=== PATIENT | female | born 1950 | race Caucasian/White ===

== ENCOUNTER 2020-02-01 00:22 | Outpatient (CLI) | payer MEDICARE, SELFPAY ==
[2020-02-01 18:56] LABS: SARS-CoV-2 RNA PCR Negative
== END 2020-02-01 00:23 | disposition home or self-care (01) ==
LOC: ANHCOVIDDT 00:22
PROVIDERS: PCP Internal Medicine; Visit Provider Internal Medicine Gastroenterology
DX: Z01.818 Encounter for other preprocedural examination (principal); Z11.59 Encounter for screening for other viral diseases; Z12.11 Encounter for screening for malignant neoplasm of colon
CPT/HCPCS: 87635; C9803; U0003

== ENCOUNTER 2020-02-03 01:34 | Day surgery (SDC) | payer MEDICARE, SELFPAY ==
[2020-02-03 06:40] VITALS: BP 145/108; PULSE 90; RESP 18; TEMP 36.6; O2SAT 97
--- NOTE | 2020-02-03 06:59 | P.HP_ITS ---
History of Present Illness History of Present Illness Consent: Risks, benefits, and alternatives have been discussed and questions answered. Patient agrees to proceed with procedure. Chief complaint: Neoplasm Screening Narrative: Jayne Perez is a 69 year old W female referred for screening colonoscopy secondary to history of colonic polyps. Patient states she has had several colonoscopies in the past last one was 8 years ago in [place] which time a polyp was removed. There is no family history of colorectal cancer. Patient is asymptomatic. 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 Patient underwent total hysterectomy with subsequent radiation and chemotherapy 4 years ago [facility] Past Medical History Medical History (Updated 02/03/20 @ 07:01 by Jeremy Crockett MD) Diabetes mellitus History of uterine cancer Hypertension Restless legs syndrome Surgical History Surgical History (Updated 02/03/20 @ 07:02 by Jeremy Crockett MD) Status post total abdominal hysterectomy and bilateral salpingo-oophorectomy (PROSPER-BSO) Status post total left knee replacement Social History Social History Gender identity (if verbalized by the patient): Female Sexual Orientation (if Verbalized by the Patient): Straight or Heterosexual Meds Home Medications and Allergies Home Medications Medication Instructions Recorded Confirmed Type glimepiride 1 mg PO HS 01/27/20 02/03/20 History lisinopril 10 mg PO DAILY 01/27/20 01/27/20 History metformin 1,000 mg PO BID 01/27/20 01/27/20 History ropinirole [Requip] 0.25 mg PO PRN 01/27/20 01/27/20 History Allergies Allergy/AdvReac Type Severity Reaction Status Date / Time Penicillins Allergy Mild Unknown Verified 02/03/20 06:39 erythromycin base Allergy Unknown Verified 02/03/20 06:39 [From Erythrocin] Vital Signs Vital Signs - 24 hr 02/03/20 06:40 Temperature 36.6 C Pulse Rate 90 Respiratory Rate 18 Blood Pressure 145/108 H Pulse Oximetry 97 Exam Const: Orientation/consciousness: patient oriented x3 Resp: Auscultation: clear to auscultation bilaterally Cardio: Rate: regular rate Rhythm: regular rhythm Heart sounds: no murmurs GI: GI Palp: Yes Soft to palpation, No Tenderness to palpation present (GI), Yes No hepatosplenomegaly present and No Palpable mass present Auscultation: normal bowel sounds Neuro: General: patient oriented x3 and no focal motor deficits Extrem: General: no pedal edema Assessment and Plan Additional Plan screening colonoscopy secondary history of colonic polyps
[2020-02-03] MEDS: LACTATED RINGERS 1,000 ML 150 ML IV CONT (07:10)
[2020-02-03 07:24] LABS: Glucose Point of Care 170 (65-105)
--- NOTE | 2020-02-03 07:29 | WPDANESEPPF ---
Anes - Initial Pre Proc Eval Procedure: Operation Date: 02/03/20 08:00 Proposed Procedures p Screening Colonoscopy - Jeremy Corckett MD Date/Time: 02/03/20 07:29 Surgeon: Jeremy Crockett MD Pre Op Diagnosis: Neoplasm Screening Patient Data Age: 69 Gender: F Height: Weight: 92.1 kg Last Vital Signs Temp 36.6 C 02/03/20 06:40 Pulse 90 02/03/20 06:40 Resp 18 02/03/20 06:40 BP 145/108 H 02/03/20 06:40 Pulse Ox 97 02/03/20 06:40 Allergies Allergy/AdvReac Type Severity Reaction Status Date / Time Penicillins Allergy Mild Unknown Verified 02/03/20 06:39 erythromycin base Allergy Unknown Verified 02/03/20 06:39 [From Erythrocin] Home Medications Medication Instructions Recorded Confirmed Type glimepiride 1 mg PO HS 01/27/20 02/03/20 History lisinopril 10 mg PO DAILY 01/27/20 01/27/20 History metformin 1,000 mg PO BID 01/27/20 01/27/20 History ropinirole [Requip] 0.25 mg PO PRN 01/27/20 01/27/20 History Laboratory Tests 02/03/20 07:08 POC Capillary Glucose 170 mg/dl H mg/dl (65-105) Patient hx anesthesia problems: none Family hx anesthesia problems: none PMFSH Past Medical History Medical History (Updated 02/03/20 @ 07:30 by Rolo Sahu MD) Cancer ENDOMETRIAL CA Diabetes mellitus History of uterine cancer Hypertension Restless legs syndrome Surgical History Surgical History (Updated 02/03/20 @ 07:02 by Jeremy Crockett MD) Status post total abdominal hysterectomy and bilateral salpingo-oophorectomy (PROSPER-BSO) Status post total left knee replacement Social History Social History Gender identity (if verbalized by the patient): Female Sexual Orientation (if Verbalized by the Patient): Straight or Heterosexual Anes - Eval Final PreProcedure Day of Procedure 02/03/20 07:29 Patient weight: obese Heart: regular rate and rhythm Lungs: clear to auscultation and normal air movement Airway: Mallampati scale class II Neurological: alert and oriented Last oral intake: >/= 8 hours ASA classification: III Emergent: no Anesthetic plan: proceed Anesthesia type and monitoring: general GIVS Informed Consent: The patient's anesthetic plan and its attendant risks and benefits were discussed with the patient/family/POA. Questions were solicited and answers provided to the satisfaction of the patient/family/POA.
[2020-02-03 08:21] VITALS: BP 111/61; PULSE 75; RESP 23; O2SAT 99
[2020-02-03 08:31] VITALS: BP 113/98; PULSE 75; RESP 23; O2SAT 99
[2020-02-03 08:39] VITALS: BP 136/79; PULSE 71; RESP 23; O2SAT 97
== END 2020-02-03 09:02 | disposition home or self-care (01) ==
PROVIDERS: PCP Internal Medicine; Visit Provider Internal Medicine Gastroenterology
PROC: 0DJD8ZZ Inspection of Lower Intestinal Tract, Via Natural or Artificial Opening Endoscopic (ICD-10-PCS; CPT 45378; principal; 2020-02-03 08:00)
DX: Z12.11 Encounter for screening for malignant neoplasm of colon (principal); K63.5 Polyp of colon; K64.8 Other hemorrhoids; K64.4 Residual hemorrhoidal skin tags
CPT/HCPCS: 45380; 88305; J2704; J7120

== ENCOUNTER 2021-10-18 16:20 | Emergency (ER) | payer MEDICARE, SELFPAY ==
[2021-10-18 16:22] VITALS: BP 132/80; PULSE 84; RESP 20; TEMP 36.5; O2SAT 96
--- NOTE | 2021-10-18 16:29 | ECG_ITS ---
Measurements Intervals [place] Rate: 80 P: 31 GA: 144 QRS: 41 QRSD: 102 T: 35 QT: 366 QTc: 423 Interpretive Statements SINUS RHYTHM NO PREVIOUS ECG AVAILABLE FOR COMPARISON Electronically Signed On 10-19-2021 7:08:51 [employer] by Riccardo Patiño M.D.
[2021-10-18 17:05] LABS: Basophils Percent Auto 0.4 % (0.2-1.2); Eosinophils Absolute Auto 0.5 K/mm3 (0-0.3); Eosinophils Percent Auto 7.1 % (0-4.4); Hematocrit 42.3 % (37.0-47.0); Hemoglobin 13.9 g/dL (12.0-15.0); Immature Granulocyte Absolute 0.03 K/mm3 (0.00-0.031); Immature Granulocyte Percent A 0.4 % (0-0.5); Lymphocytes Absolute Auto 1.72 K/mm3 (0.9-3.2); Lymphocytes Percent Auto 25.4 % (18.3-44.2); Mean Corpuscular HGB Conc 32.9 g/dl (32-36); Mean Corpuscular Hemoglobin 31.6 pg (26-34); Mean Corpuscular Volume 96.1 fl (80-100); Mean Platelet Volume 10.1 fl (7.4-10.4); Monocytes Absolute Auto 0.7 K/mm3 (0.1-0.6); Monocytes Percent Auto 9.6 % (2.6-8.5); Neutrophils Absolute Auto 3.9 K/mm3 (1.3-6.7); Neutrophils Percent Auto 57.1 % (45.5-73.1); Platelet Count Result 208 k/mm3 (150-375); Red Cell Distribution Width 13.7 % (11.5-14.5); White Blood Count 6.8 K/mm3 (4.5-10.0)
[2021-10-18 17:15] LABS: Alanine Aminotransferase 25 U/L (4-35); Albumin Level 4.1 g/dL (3.5-5.1); Alkaline Phosphatase 59 U/L (38-126); Anion Gap 10 mmol/L (8-16); Aspartate Amino Transferase 27 U/L (14-36); Bilirubin,Total 0.1 mg/dL (0.2-1.3); Blood Urea Nitrogen 24 mg/dL (7-17); Calcium 9.5 mg/dL (8.4-10.2); Carbon Dioxide 24 mmol/L (22-30); Chloride 105 mmol/L (98-107); Estimated CRCL calculation 78 ml/min; Estimated Glomerular Filt Rate > 60; Glucose 145 mg/dL (65-110); Potassium 3.8 mmol/L (3.4-5.0); Sodium 139 mmol/L (137-145)
[2021-10-18 17:54] LABS: Magnesium 1.9 mg/dL (1.6-2.3)
[2021-10-18 18:07] LABS: Troponin I < 0.012 ng/mL (0.000-0.034)
[2021-10-18 18:34] LABS: Add Urine Microscopic? YES; Appearance Urine Cloudy (Clear); Bilirubin Urine Negative (Negative); Blood Urine Negative (Negative); Color Urine Yellow (Yellow); Glucose Urine UA Negative (Negative); Ketones Urine Trace mg/dL (Negative); Leukocyte Esterase Ur Negative LEU/UL (Negative); Nitrate Urine Negative (Negative); Protein Urine Negative (Negative); RBC Urine 0-2 /hpf (0-2); Specific Grav Ur 1.016 (1.001-1.035); Squamous Epithelial Cell Urine Rare /hpf (Few); Urobilinogen Urine Negative mg/dL (<2.0)
[2021-10-18 18:49] VITALS: BP 121/89; BP 124/83; PULSE 76; PULSE 85
--- NOTE | 2021-10-18 19:03 | ED.GENADULT ---
HPI - General Adult General Chief complaint: Syncope Stated complaint: CP, fast heart rate Time Seen by Provider: 10/18/21 16:29 History of Present Illness HPI narrative: Patient is a 71-year-old female who presents ER with heart palpitations. Patient reports she has known arrhythmia, her believes it is atrial fibrillation. She sees a telegraph repeater installer in [place] for care. She has been having episodes and has been referred to an turret lathe machinist at [facility]. She is scheduled to be seen on 10/26/2021. Today while she was sitting in the car waiting for her to get done with an eye appointment she began having racing the heart. The racing comes in spikes. Today it made her lightheaded and sweaty. She was also having some central chest discomfort going towards her back. She is unsure of any aggravating factors but does think it may occur when she eats at times. She has no epigastric pain. No nausea/vomiting/diarrhea. She did not take any medications to discontinue her racing the heart. She does take metoprolol at home. EMS felt patient was in a rhythm of A. fib going between a rate of 80 and 160 bpm. Currently patient is in normal sinus rhythm that is well controlled. She no longer has any discomfort or other symptoms. Related Data Home Medications Medication Instructions Recorded Confirmed glimepiride 1 mg PO HS 01/27/20 02/03/20 lisinopril 10 mg PO DAILY 01/27/20 01/27/20 metformin 1,000 mg PO BID 01/27/20 01/27/20 ropinirole [Requip] 0.25 mg PO PRN 01/27/20 01/27/20 Allergies Allergy/AdvReac Type Severity Reaction Status Date / Time Penicillins Allergy Mild Unknown Verified 02/03/20 06:39 erythromycin base Allergy Unknown Verified 02/03/20 06:39 [From Erythrocin] Review of Systems Review of Systems: All systems reviewed & are unremarkable except as noted in HPI and below Constitutional: Constitutional: Denies chills, Denies fever(s) and Denies weakness Comments: Sweats ENT: Denies nasal congestion and Denies sore throat Cardiovascular: Cardiovascular: Reports chest pain, Reports rapid heart rate and Reports radiating jaw, neck or arm pain Respiratory: Respiratory: Denies cough, Denies dyspnea and Denies wheezing Gastrointestinal: Gastrointestinal: Denies nausea and Denies vomiting Musculoskeletal: Musculoskeletal: Reports back pain, Denies arthralgias, Denies joint swelling and Denies muscle cramps Neurologic: Reports dizziness, Denies headache(s), Denies focal weakness and Denies numbness PMFSH Past Medical History Medical History (Updated 10/18/21 @ 19:48 by Neil Malone MD) Atrial fibrillation Cancer ENDOMETRIAL CA Diabetes mellitus History of uterine cancer Hypertension Restless legs syndrome Surgical History Surgical History (Updated 02/03/20 @ 07:02 by Jeremy Crockett, ) Status post total abdominal hysterectomy and bilateral salpingo-oophorectomy (PROSPER-BSO) Status post total left knee replacement Social History Social History Gender identity (if verbalized by the patient): Female Sexual Orientation (if Verbalized by the Patient): Straight or Heterosexual Exam Narrative: GENERAL: Well-appearing, well-nourished, and in no acute distress. HEAD: Normocephalic, atraumatic. NECK: Supple. CHEST: Clear to auscultation. No respiratory distress. HEART: Regular rate and rhythm. Normal peripheral pulses. ABDOMEN: Soft, nontender, nondistended. EXTREMITIES: Normal range of motion. No edema. SKIN: Warm, dry, no rash. NEURO: Alert and oriented x3. PSYCH: Normal mood and affect. Course Course Emergency Course: Patient informed results. Asymptomatic in ER. No A. fib with RVR here. Recommend follow-up with cardiology. Troponins negative x2. Vital Signs Vital signs: Vital Signs Temperature 97.7 F 10/18/21 16:22 Pulse Rate 84 10/18/21 16:22 Respiratory Rate 20 10/18/21 16:22 Blood Pres
[2021-10-18 19:30] VITALS: BP 112/93; PULSE 80; RESP 16; O2SAT 98
--- NOTE | 2021-10-18 19:30 | PC.NURSE ---
Handoff received from Rosaline EDMONDS. Patient lying in ED stretcher comfortably. Calm and cooperative. AAOX4. Equal and unlabored resp. Skin is warm and dry. Vitals WNL. SR on school bus monitor. IV in place secured and patent. Pending repeat troponin. No complaints at this time. Will continue to monitor patient.
[2021-10-18 20:09] LABS: Troponin I < 0.012 ng/mL (0.000-0.034)
[2021-10-18 20:55] VITALS: BP 121/83; PULSE 79; RESP 17; O2SAT 97
== END 2021-10-18 20:56 | disposition home or self-care (01) ==
PROVIDERS: Emergency Medicine; Emergency Provider Emergency Medicine
DX: R00.2 Palpitations (principal); I48.91 Unspecified atrial fibrillation; E11.9 Type 2 diabetes mellitus without complications; I10 Essential (primary) hypertension; G25.81 Restless legs syndrome; Z85.42 Personal history of malignant neoplasm of other parts of uterus; Z85.44 Personal history of malignant neoplasm of other female genital organs; Z79.84 Long term (current) use of oral hypoglycemic drugs; Z96.652 Presence of left artificial knee joint
CPT/HCPCS: 36415; 80053; 81001; 83735; 84484; 85025; 93005; 99284